=== PATIENT | male | born 1980 | race Caucasian/White ===

== ENCOUNTER 2017-06-13 18:25 | Inpatient (IN) | payer MEDICARE, MEDICAID ==
--- NOTE | 2017-06-13 19:10 | ED Physician Chart ---
ED Chief Complaint/HPI - Patient Information Date Seen:: 06/13/17 Time Seen:: 18:55 Chief Complaint:: left hip pain History of Present Illness:: 9 days ago patient was maintained transferred from his wheelchair to the bed and he fell injuring his left hip he was taken to [facility] where x- rays were taken and patient and mother were told that everything was alright. Patient lives with his mother and she is going to have surgery tomorrow so patient is here to be admitted so [facility]. Vitals:: Vital Signs - 8 hr 06/13/17 18:33 Temp 98.3 F HR 96 RR 16 BP 120/75 O2 Sat % 95 Historian:: Patient, Family Member Review:: Nurse's Note Reviewed ED Review of Systems - Review of Systems General/Constitutional: No fever, No chills Skin: No skin lesions Head: No headache Eyes: No loss of vision ENT: No earache Neck: No neck pain Cardio Vascular: No chest pain, No palpitations Pulmonary: No SOB GI: No nausea, No vomiting G/U: No dysuria, No frequency, No hematuria Musculoskeletal: Bone or joint pain Endocrine: No polyuria Psychiatric: No prior psych history Hematopoietic: No bruising Allergic/Immuno: No urticaria Neurological: No syncope ED Past Medical History - Past Medical History Past Medical History: Other (cerebral palsy) Family History: HTN Social History: Non Smoker, No Alcohol, Lives With Parents Surgical History: other (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; right foot; bilateral heel; hamstring) Psychiatricy History: None Medication: Reviewed Family Medical History - Family Member Mother Hx Family Hypertension: Yes ED Physical Exam - Physical Examination General/Constitutional: Well-developed, well-nourished, Alert, No distress Head: Atraumatic Eyes: Lids, conjuctiva normal, PERRL Skin: Nl inspection, No rash, No skin lesions, No ecchymosis ENMT: External ears, nose nl Neck: No nuchal rigidity Respiratory: Nl effort/Exclusion, Clear to Auscultation Cardio Vascular: RRR, No murmur, gallop, rubs GI: No tenderness/rebounding/guarding, No organomegaly, No hernia Other Neuro/Psych comments:: Contractures present ED Labs/Radiology/EKG Results - Lab Results Results: Laboratory Results - last 24 hr 06/13/17 06/13/17 19:13 19:13 WBC 8.3 RBC 5.84 H Hgb 17.5 Hct 51.8 MCV 88.7 MCH 30.0 MCHC Differential 33.9 RDW 12.5 Plt Count 178 MPV 8.9 Neutrophils % 66.2 Lymphocytes % 25.3 Monocytes % 5.9 Eosinophils % 1.7 Basophils % 0.9 Sodium 138 Potassium 3.8 Chloride 103 Carbon Dioxide 28.3 Anion Gap 10.5 BUN 9 Creatinine 0.5 L Est GFR ( Amer) > 60.0 Est GFR (Non-Af Amer) > 60.0 BUN/Creatinine Ratio 18.0 Glucose 116 H Calcium 9.8 - Radiology Results Results: Chest x-ray and left hip x-ray were normal ED Septic Shock - . Is Septic Shock (SBP<90, OR Lactate>4 mmol\L) present?: No - <6hrs of presentation: Vital Signs: Vital Signs - 8 hr 06/13/17 18:33 Temp 98.3 F HR 96 RR 16 BP 120/75 O2 Sat % 95 ED Reassessment (Disposition) - Reassessment Reassessment Condition:: Unchanged - Diagnosis Diagnosis:: Viral syndrome; left hip contusion - Patient Disposition Admitted to:: Med/Surg Spoke to:: Deon Moreno Admitting Medical Physician:: Deon Moreno
[2017-06-13 19:20] LABS: % BASOPHILS 0.9 % (0.0-2.0); % EOSINOPHILS 1.7 % (0.0-5.0); % LYMPHOCYTES 25.3 % (20.0-50.0); % MONOCYTES 5.9 % (2.0-10.0); % NEUTROPHILS 66.2 % (40.0-80.0); BASOPHILE ABSOLUTE 0.1 Th/cumm (0-0.2); EOSINOPHILE ABSOLUTE 0.1 Th/cmm (0.1-0.4); HEMATOCRIT 51.8 % (41.0-60); HEMOGLOBIN 17.5 gm/dL (12-16); LYMPHOCYTE ABSOLUTE 2.1 Th/cmm (1.5-3.0); MEAN CELL VOLUME 88.7 fl (80-99); MEAN CORPUSCULAR HGB CONC 33.9 pg (28.0-36.0); MEAN PLATELET VOLUME 8.9 fl; MONOCYTE ABSOLUTE 0.5 Th/cmm (0.3-1.0); NEUTROPHILE ABSOLUTE 5.5 Th/cmm (1.8-8.0); PLATELET COUNT 178 Th/cmm (150-400); RED BLOOD COUNT 5.84 Mil/cmm (4.30-5.70); RED CELL DISTRIBUTION WIDTH 12.5 % (11.5-20.0); WHITE BLOOD COUNT 8.3 Th/cmm (4.8-10.8)
[2017-06-13 19:32] LABS: ANION GAP 10.5 (7.0-16.0); BUN - UREA NITROGEN 9 mg/dL (7-25); CALCIUM SERUM 9.8 mg/dL (8.6-10.3); CARBON DIOXIDE 28.3 mEq/L (21.0-31.0); CHLORIDE 103 mEq/L (98-107); CREATININE - SERUM 0.5 mg/dL (0.7-1.3); GFR AFRICAN-AMERICAN > 60.0 ml/min (>90); GFR NON AFRICAN-AMERICAN > 60.0 ml/min; GLUCOSE 116 mg/dL (70-105); POTASSIUM SERUM 3.8 mEq/L (3.5-5.1); SODIUM SERUM 138 mEq/L (136-145)
--- NOTE | 2017-06-14 07:56 | Diagnostic Imaging Report ---
Exam: Left hip joint. HISTORY: Status post trauma pain Findings: Portable examination of the left hip joint at 1933 hours reviewed, no prior studies available comparison. The study somewhat limited due to patient inability cooperate . The study demonstrates the the head of the left femur is well within the acetabular fossa. The study is limited due to inability to position the patient. The visualized the hemipelvis is intact. IMPRESSION Limited examination of the left hip joint demonstrates no evidence of fracture dislocation. Additional views are recommended if clinically indicated.
--- NOTE | 2017-06-14 07:58 | Diagnostic Imaging Report ---
Portable chest x-ray Time: 1933 hours History: Trauma Allowing for portable technique the heart size is normal. No focal pulmonary parenchymal processes. No hilar or mediastinal abnormalities. There is a question of the tubular structure extending from the left neck area overlying the superior mediastinum. Clinical correlation recommended. Impression: No acute abnormalities.
[2017-06-14] MEDS ORDERED: Morphine Sulfate 2 mg/mL 1mL Syr IVP PRN (11:04)
[2017-06-14 11:34] LABS: % BASOPHILS 0.1 % (0.0-2.0); % EOSINOPHILS 1.5 % (0.0-5.0); % MONOCYTES 5.9 % (2.0-10.0); % NEUTROPHILS 67.5 % (40.0-80.0); EOSINOPHILE ABSOLUTE 0.1 Th/cmm (0.1-0.4); HEMATOCRIT 51.2 % (41.0-60); HEMOGLOBIN 17.4 gm/dL (12-16); LYMPHOCYTE ABSOLUTE 1.7 Th/cmm (1.5-3.0); MEAN CELL VOLUME 88.6 fl (80-99); MEAN CORPUSCULAR HGB CONC 33.9 pg (28.0-36.0); MEAN PLATELET VOLUME 8.9 fl; MONOCYTE ABSOLUTE 0.4 Th/cmm (0.3-1.0); NEUTROPHILE ABSOLUTE 4.7 Th/cmm (1.8-8.0); PLATELET COUNT 182 Th/cmm (150-400); RED BLOOD COUNT 5.78 Mil/cmm (4.30-5.70); RED CELL DISTRIBUTION WIDTH 12.5 % (11.5-20.0); WHITE BLOOD COUNT 6.9 Th/cmm (4.8-10.8)
--- NOTE | 2017-06-14 11:41 | Diagnostic Imaging Report ---
CHEST X-RAY: AP view INDICATION: Cough COMPARISON: 06/13/2017 FINDINGS: Mild increased interstitial lung markings are noted. No focal consolidation or effusions. Heart size is normal. A shunt catheter is noted. IMPRESSION: No focal consolidation identified Mild accentuation of the interstitial lung markings, nonspecific.
[2017-06-14 11:53] VITALS: BP 133/82
[2017-06-14 11:53] LABS: ANION GAP 8.4 (7.0-16.0); BUN - UREA NITROGEN 9 mg/dL (7-25); CALCIUM SERUM 10.1 mg/dL (8.6-10.3); CARBON DIOXIDE 31.9 mEq/L (21.0-31.0); CHLORIDE 104 mEq/L (98-107); CREATININE - SERUM 0.7 mg/dL (0.7-1.3); GFR AFRICAN-AMERICAN > 60.0 ml/min (>90); GFR NON AFRICAN-AMERICAN > 60.0 ml/min; GLUCOSE 108 mg/dL (70-105); POTASSIUM SERUM 4.3 mEq/L (3.5-5.1); SODIUM SERUM 140 mEq/L (136-145)
--- NOTE | 2017-06-14 12:47 | History and Physical ---
History of Present Illness - HPI Chief Complaint: left hip pain HPI: This is a 37 year old male who has a past medical history of cerebral palsy. According to er records patient was being transferred to the wheelchair to the bed and fell on his left hip. Patient was taken to [facility] and xrays were done showing no fractures. Vital Signs: Last Vital Signs Temp 98.3 F 06/14/17 10:50 Pulse 84 06/14/17 10:50 Resp 18 06/14/17 10:50 BP 133/82 06/14/17 11:53 Pulse Ox 97 06/14/17 10:50 Past Medical History Other History: cerebral palsy Family Medical History - Family Member Mother History Unknown: Yes Hx Family Hypertension: Yes Social History Smoke: No Alcohol: None Drugs: None Lives: With Family - Medications Home Medications: Home Medication Medication Instructions Recorded Type Tamsulosin [Flomax] 0.4 mg PO DAILY 06/13/17 History Triamcinolone Acet 0.1% Cream 1 appl TP BID 06/13/17 History [Kenalog 0.1%] - Allergies Allergies/Adverse Reactions: Allergies Allergy/AdvReac Type Severity Reaction Status Date / Time chlorpromazine AdvReac Verified 06/14/17 09:34 [From Thorazine] ciprofloxacin [From Cipro] AdvReac Verified 06/14/17 09:34 hydromorphone [From Dilaudid] AdvReac Verified 06/14/17 09:34 morphine AdvReac Verified 06/14/17 09:34 vancomycin AdvReac Verified 06/14/17 09:34 Review of Systems - Review of Systems Constitutional: Report: No Significant Eyes: Report: No Significant ENT: Report: No Significant Respiratory: Report: No Significant Cardiovascular: Report: No Significant Gastrointestinal: Report: No Significant Genitourinary: Report: No Significant Musculoskeletal: Report: No Significant Neurological: Report: No Significant Physical Exam - Physical Exam HEENT: Report: Ears Nose Throat within normal limits Neck: Report: Within normal limits Cardiovascular Systems: Report: +s1/s2 noted Respiratory: Report: Breath Sounds are within normal limits Abdomen: Report: Non-tender to palpation Back: Report: Inspection of back is within normal limits. Extremities: Report: Non-tender to palpation. Skin: Report: Color of skin is within normal limits Neuro/Psych: Report: Mood affect is within normal limits - Lab Results All Lab Results last 24 hours: Laboratory Results - last 24 hr 06/14/17 06/14/17 11:20 11:20 WBC 6.9 RBC 5.78 H Hgb 17.4 Hct 51.2 MCV 88.6 MCH 30.0 MCHC Differential 33.9 RDW 12.5 Plt Count 182 MPV 8.9 Neutrophils % 67.5 Lymphocytes % 25.0 Monocytes % 5.9 Eosinophils % 1.5 Basophils % 0.1 Sodium 140 Potassium 4.3 Chloride 104 Carbon Dioxide 31.9 H Anion Gap 8.4 BUN 9 Creatinine 0.7 Est GFR ( Amer) > 60.0 Est GFR (Non-Af Amer) > 60.0 BUN/Creatinine Ratio 12.9 Glucose 108 H Calcium 10.1 - Assessment Assessment: left hip pain cerebral palsy - Plan Plan: rn field case manager to arrange placement for this patient continue current orders pain mgmt
[2017-06-14] MEDS ORDERED: Influenza Vaccine 0.5 mL Syr IM ONE (13:07)
[2017-06-14] MEDS ORDERED: VTE Chemical Prophylaxis Screen/Admission MC PRN (13:36)
[2017-06-14] MEDS ORDERED: Hydrocodone/APAP 5mg/325mg Tab PO PRN (15:25)
[2017-06-15 05:17] LABS: % BASOPHILS 0.8 % (0.0-2.0); % EOSINOPHILS 2.5 % (0.0-5.0); % LYMPHOCYTES 32.7 % (20.0-50.0); % MONOCYTES 7.5 % (2.0-10.0); % NEUTROPHILS 56.5 % (40.0-80.0); BASOPHILE ABSOLUTE 0.1 Th/cumm (0-0.2); EOSINOPHILE ABSOLUTE 0.2 Th/cmm (0.1-0.4); HEMATOCRIT 46.9 % (41.0-60); LYMPHOCYTE ABSOLUTE 2.5 Th/cmm (1.5-3.0); MEAN CELL VOLUME 88.2 fl (80-99); MEAN CORPUSCULAR HEMOGLOBIN 30.1 pg (26.0-30.0); MEAN CORPUSCULAR HGB CONC 34.1 pg (28.0-36.0); MONOCYTE ABSOLUTE 0.6 Th/cmm (0.3-1.0); NEUTROPHILE ABSOLUTE 4.2 Th/cmm (1.8-8.0); PLATELET COUNT 193 Th/cmm (150-400); RED BLOOD COUNT 5.32 Mil/cmm (4.30-5.70); RED CELL DISTRIBUTION WIDTH 12.8 % (11.5-20.0); WHITE BLOOD COUNT 7.6 Th/cmm (4.8-10.8)
[2017-06-15 05:40] LABS: ALB/GLOB RATIO 1.2 (1.0-1.8); ALBUMIN 3.5 gm/dL (4.2-5.5); ALKALINE PHOSPHATASE 92 U/L (34-104); ANION GAP 4.3 (7.0-16.0); BILIRUBIN,TOTAL 0.4 mg/dL (0.3-1.0); BUN - UREA NITROGEN 12 mg/dL (7-25); CALCIUM SERUM 9.3 mg/dL (8.6-10.3); CARBON DIOXIDE 27.5 mEq/L (21.0-31.0); CHLORIDE 109 mEq/L (98-107); CREATININE - SERUM 0.7 mg/dL (0.7-1.3); GFR AFRICAN-AMERICAN > 60.0 ml/min (>90); GFR NON AFRICAN-AMERICAN > 60.0 ml/min; GLUCOSE 105 mg/dL (70-105); POTASSIUM SERUM 3.8 mEq/L (3.5-5.1); SGOT 13 U/L (13-39); SGPT/ALT 14 U/L (7-52); SODIUM SERUM 137 mEq/L (136-145); TOTAL PROTEIN,SERUM 6.5 gm/dL (6.0-8.3)
[2017-06-15 05:45] LABS: INR 1.01 (0.5-1.4); PROTHROMBIN TIME (TEST) 10.5 SECONDS (9.5-11.5)
[2017-06-15] MEDS: POLYETHYLENE GLYCOL 3350 17 GM PACK PO SCH (09:19)
[2017-06-15] MEDS: Triamcinolone Acetonide 0.1% Cream 15 gm TP SCH ×2 (09:19→16:57)
--- NOTE | 2017-06-15 20:20 | Progress Notes ---
DATE: 06/15/2017 SUBJECTIVE: The patient was seen in his room, lying in the bed. The patient denies any pain or discomfort at this time. The patient is able to verbalize. The patient has a history of cerebral palsy. Otherwise, the patient appears to be comfortable, in no acute distress. Denies any pain or discomfort at this time. OBJECTIVE: VITAL SIGNS: Temperature 98.0, heart rate 62, blood pressure 103/51, respirations of 18, and 99% on room air. HEENT: Head is atraumatic and normocephalic. Eyes: Bilateral conjunctivae are clear. Bilateral pupils equal, round, and reactive. NECK: Supple. No JVD. CARDIOVASCULAR: S1 and S2, without murmur. PULMONARY: Clear to auscultation. GASTROINTESTINAL: Soft and nontender without guarding. Positive bowel sounds. MUSCULOSKELETAL: No clubbing. No cyanosis. Upper extremity contracted. ASSESSMENT: 1. Left hip pain. 2. Contusion. 3. Cerebral palsy. PLAN: We will put the patient on aspiration precautions. manager er to arrange for placement. We will continue pain management as needed. We are also going to monitor the patient's nutritional status. Treatment plans were discussed with the patient's nurse. Treatment plans were discussed with Dr. Moreno. JOB# [id number]
[2017-06-16] MEDS: Triamcinolone Acetonide 0.1% Cream 15 gm TP SCH ×2 (10:23→16:37)
[2017-06-16] MEDS: POLYETHYLENE GLYCOL 3350 17 GM PACK PO SCH (10:23)
--- NOTE | 2017-06-16 13:41 | Internal Medicine Prog Note ---
Internal Medicine Subjective - Subjective Service Date: 06/16/17 Patient seen and examined:: with staff Patient is:: awake, verbal Per staff patient has:: tolerating meds Internal Medicine Objective - Results Result Diagrams: 06/15/17 04:25 06/15/17 04:25 Recent Labs: Laboratory Last Values WBC 7.6 Th/cmm (4.8-10.8) 06/15/17 04:25 RBC 5.32 Mil/cmm (4.30-5.70) 06/15/17 04:25 Hgb 16.0 gm/dL (12-16) 06/15/17 04:25 Hct 46.9 % (41.0-60) 06/15/17 04:25 MCV 88.2 fl (80-99) 06/15/17 04:25 MCH 30.1 pg (26.0-30.0) H 06/15/17 04:25 MCHC Differential 34.1 pg (28.0-36.0) 06/15/17 04:25 RDW 12.8 % (11.5-20.0) 06/15/17 04:25 Plt Count 193 Th/cmm (150-400) 06/15/17 04:25 MPV 9.0 fl 06/15/17 04:25 Neutrophils % 56.5 % (40.0-80.0) 06/15/17 04:25 Lymphocytes % 32.7 % (20.0-50.0) 06/15/17 04:25 Monocytes % 7.5 % (2.0-10.0) 06/15/17 04:25 Eosinophils % 2.5 % (0.0-5.0) 06/15/17 04:25 Basophils % 0.8 % (0.0-2.0) 06/15/17 04:25 PT 10.5 SECONDS (9.5-11.5) 06/15/17 04:25 INR 1.01 (0.5-1.4) 06/15/17 04:25 PTT (Actin FS) 28.0 SECONDS (26.0-38.0) 06/15/17 04:25 Sodium 137 mEq/L (136-145) 06/15/17 04:25 Potassium 3.8 mEq/L (3.5-5.1) 06/15/17 04:25 Chloride 109 mEq/L (98-107) H 06/15/17 04:25 Carbon Dioxide 27.5 mEq/L (21.0-31.0) 06/15/17 04:25 Anion Gap 4.3 (7.0-16.0) L 06/15/17 04:25 BUN 12 mg/dL (7-25) 06/15/17 04:25 Creatinine 0.7 mg/dL (0.7-1.3) 06/15/17 04:25 Est GFR ( Amer) > 60.0 ml/min (>90) 06/15/17 04:25 Est GFR (Non-Af Amer) > 60.0 ml/min 06/15/17 04:25 BUN/Creatinine Ratio 17.1 06/15/17 04:25 Glucose 105 mg/dL (70-105) 06/15/17 04:25 Calcium 9.3 mg/dL (8.6-10.3) 06/15/17 04:25 Total Bilirubin 0.4 mg/dL (0.3-1.0) 06/15/17 04:25 AST 13 U/L (13-39) 06/15/17 04:25 ALT 14 U/L (7-52) 06/15/17 04:25 Alkaline Phosphatase 92 U/L (34-104) 06/15/17 04:25 Total Protein 6.5 gm/dL (6.0-8.3) 06/15/17 04:25 Albumin 3.5 gm/dL (4.2-5.5) L 06/15/17 04:25 Globulin 3.0 gm/dL 06/15/17 04:25 Albumin/Globulin Ratio 1.2 (1.0-1.8) 06/15/17 04:25 - Physical Exam Vitals and I&O: Vital Signs Temp 97.6 F 06/16/17 04:00 Pulse 66 06/16/17 04:00 Resp 18 06/16/17 04:00 BP 111/53 06/16/17 04:00 Pulse Ox 96 06/16/17 04:00 Intake & Output 06/15/17 06/16/17 06/16/17 18:59 06:59 18:59 Intake Total 2000 500 Output Total 6 500 Balance 1993 0 Weight (lbs) 162 lb 8 oz 162 lb Intake: Oral 2000 500 Output: Urine 4 500 Stool 2 Other: # Voids 2 # Bowel Movements 0 Stool Characteristics Soft Formed Active Medications: Current Medications Acetaminophen/Hydrocodone Bitart ([place] 5mg/325mg) 1 tab PO Q4H PRN PRN Reason: Pain (Mild) Stop: 08/13/17 15:24 Heparin Sodium (Porcine) (Heparin) 5,000 units SUBQ Q12H YANET Stop: 08/13/17 20:59 Last Admin: 06/16/17 10:24 Dose: Not Given Miscellaneous (Vte Chemical Prophylaxis Screen/ Admission) 1 ea MC PRN PRN PRN Reason: PROTOCOL Stop: 08/13/17 13:35 Polyethylene Glycol (Miralax) 17 gm PO DAILY YANET Stop: 08/14/17 08:59 Last Admin: 06/16/17 10:23 Dose: 17 gm Tamsulosin HCl (Flomax) 0.4 mg PO DAILY YANET Stop: 08/14/17 08:59 Last Admin: 06/16/17 10:23 Dose: 0.4 mg Triamcinolone Acetonide (Kenalog 0.1%) 1 appl TP BID YANET Stop: 08/14/17 08:59 Last Admin: 06/16/17 10:23 Dose: 1 appl General: weak, alert HEENT: NC/AT, PERRLA Neck: Supple Lungs: CTAB Cardiovascular: RRR, Normal S1, Normal S2, without murmur Abdomen: soft, non-tender, non-distended, positive bowel sound Internal Medicine Assmt/Plan - Assessment Assessment: left hip pain cerebral palsy - Plan Plan: test case developer to arrange placement for this patient continue current orders pain mgmt
[2017-06-17 05:44] LABS: % BASOPHILS 0.7 % (0.0-2.0); % EOSINOPHILS 2.1 % (0.0-5.0); % LYMPHOCYTES 28.1 % (20.0-50.0); % MONOCYTES 6.1 % (2.0-10.0); BASOPHILE ABSOLUTE 0.1 Th/cumm (0-0.2); EOSINOPHILE ABSOLUTE 0.2 Th/cmm (0.1-0.4); LYMPHOCYTE ABSOLUTE 2.3 Th/cmm (1.5-3.0); MEAN CELL VOLUME 88.3 fl (80-99); MEAN CORPUSCULAR HEMOGLOBIN 29.4 pg (26.0-30.0); MEAN CORPUSCULAR HGB CONC 33.3 pg (28.0-36.0); MEAN PLATELET VOLUME 8.7 fl; MONOCYTE ABSOLUTE 0.5 Th/cmm (0.3-1.0); PLATELET COUNT 177 Th/cmm (150-400); RED BLOOD COUNT 5.44 Mil/cmm (4.30-5.70); RED CELL DISTRIBUTION WIDTH 12.6 % (11.5-20.0); WHITE BLOOD COUNT 8.1 Th/cmm (4.8-10.8)
[2017-06-17 06:00] LABS: ANION GAP 9.7 (7.0-16.0); BUN - UREA NITROGEN 15 mg/dL (7-25); CALCIUM SERUM 9.1 mg/dL (8.6-10.3); CARBON DIOXIDE 25.3 mEq/L (21.0-31.0); CHLORIDE 106 mEq/L (98-107); CREATININE - SERUM 0.6 mg/dL (0.7-1.3); GFR AFRICAN-AMERICAN > 60.0 ml/min (>90); GFR NON AFRICAN-AMERICAN > 60.0 ml/min; GLUCOSE 96 mg/dL (70-105); SODIUM SERUM 137 mEq/L (136-145)
[2017-06-17] MEDS: POLYETHYLENE GLYCOL 3350 17 GM PACK PO SCH (09:13)
--- NOTE | 2017-06-17 09:19 | General Progress Note ---
Subjective - Review of Systems Events since last encounter: left hip pain but in no acute distress Objective - Results Result Diagrams: 06/17/17 05:20 06/17/17 05:20 Recent Labs: Laboratory Last Values WBC 8.1 Th/cmm (4.8-10.8) 06/17/17 05:20 RBC 5.44 Mil/cmm (4.30-5.70) 06/17/17 05:20 Hgb 16.0 gm/dL (12-16) 06/17/17 05:20 Hct 48.0 % (41.0-60) 06/17/17 05:20 MCV 88.3 fl (80-99) 06/17/17 05:20 MCH 29.4 pg (26.0-30.0) 06/17/17 05:20 MCHC Differential 33.3 pg (28.0-36.0) 06/17/17 05:20 RDW 12.6 % (11.5-20.0) 06/17/17 05:20 Plt Count 177 Th/cmm (150-400) 06/17/17 05:20 MPV 8.7 fl 06/17/17 05:20 Neutrophils % 63.0 % (40.0-80.0) 06/17/17 05:20 Lymphocytes % 28.1 % (20.0-50.0) 06/17/17 05:20 Monocytes % 6.1 % (2.0-10.0) 06/17/17 05:20 Eosinophils % 2.1 % (0.0-5.0) 06/17/17 05:20 Basophils % 0.7 % (0.0-2.0) 06/17/17 05:20 PT 10.5 SECONDS (9.5-11.5) 06/15/17 04:25 INR 1.01 (0.5-1.4) 06/15/17 04:25 PTT (Actin FS) 28.0 SECONDS (26.0-38.0) 06/15/17 04:25 Sodium 137 mEq/L (136-145) 06/17/17 05:20 Potassium 4.0 mEq/L (3.5-5.1) 06/17/17 05:20 Chloride 106 mEq/L (98-107) 06/17/17 05:20 Carbon Dioxide 25.3 mEq/L (21.0-31.0) 06/17/17 05:20 Anion Gap 9.7 (7.0-16.0) 06/17/17 05:20 BUN 15 mg/dL (7-25) 06/17/17 05:20 Creatinine 0.6 mg/dL (0.7-1.3) L 06/17/17 05:20 Est GFR ( Amer) > 60.0 ml/min (>90) 06/17/17 05:20 Est GFR (Non-Af Amer) > 60.0 ml/min 06/17/17 05:20 BUN/Creatinine Ratio 25.0 06/17/17 05:20 Glucose 96 mg/dL (70-105) 06/17/17 05:20 Calcium 9.1 mg/dL (8.6-10.3) 06/17/17 05:20 Total Bilirubin 0.4 mg/dL (0.3-1.0) 06/15/17 04:25 AST 13 U/L (13-39) 06/15/17 04:25 ALT 14 U/L (7-52) 06/15/17 04:25 Alkaline Phosphatase 92 U/L (34-104) 06/15/17 04:25 Total Protein 6.5 gm/dL (6.0-8.3) 06/15/17 04:25 Albumin 3.5 gm/dL (4.2-5.5) L 06/15/17 04:25 Globulin 3.0 gm/dL 06/15/17 04:25 Albumin/Globulin Ratio 1.2 (1.0-1.8) 06/15/17 04:25 - Physical Exam Vitals and I&O: Vital Signs Temp 98.6 F 06/17/17 04:00 Pulse 73 06/17/17 04:00 Resp 18 06/17/17 04:00 BP 117/72 06/17/17 04:00 Pulse Ox 99 06/17/17 04:00 Intake & Output 06/16/17 06/17/17 06/17/17 18:59 06:59 18:59 Intake Total 2000 600 Output Total 500 Balance 2000 100 Weight (lbs) 73.709 kg 69.173 kg Intake: Oral 2000 600 Output: Urine 500 Other: # Voids 1 Stool Characteristics Soft Soft Formed Formed Active Medications: Current Medications Acetaminophen/Hydrocodone Bitart ([place] 5mg/325mg) 1 tab PO Q4H PRN PRN Reason: Pain (Mild) Stop: 08/13/17 15:24 Heparin Sodium (Porcine) (Heparin) 5,000 units SUBQ Q12H YANET Stop: 08/13/17 20:59 Last Admin: 06/17/17 09:14 Dose: Not Given Miscellaneous (Vte Chemical Prophylaxis Screen/ Admission) 1 ea PRN PRN PRN Reason: PROTOCOL Stop: 08/13/17 13:35 Polyethylene Glycol (Miralax) 17 gm PO DAILY YANET Stop: 08/14/17 08:59 Last Admin: 06/17/17 09:13 Dose: 17 gm Tamsulosin HCl (Flomax) 0.4 mg PO DAILY YANET Stop: 08/14/17 08:59 Last Admin: 06/17/17 09:13 Dose: 0.4 mg Triamcinolone Acetonide (Kenalog 0.1%) 1 appl TP BID YANET Stop: 08/14/17 08:59 Last Admin: 06/16/17 16:37 Dose: 1 appl
[2017-06-17] MEDS: Triamcinolone Acetonide 0.1% Cream 15 gm TP SCH (09:35)
--- NOTE | 2017-06-23 08:58 | Discharge Summary ---
DATE OF DISCHARGE: 06/17/2017 HISTORY AND HOSPITAL COURSE: The patient was admitted at [facility] on 06/14/2017 and was discharged on 06/17/2017 for further care at the [facility]. This patient apparently came in for severe left hip pain, unable to walk. The patient known to have history of cerebral palsy and the patient came in for evaluation and diagnosis of severe left hip pain and history of cerebral palsy and the patient had the workup done, showed no fracture. Physical therapy eval is given. The patient also noted to have polycythemia and the patient improved. The patient was in stable condition on 06/17/2017 and the final diagnosis of left hip pain, difficulty for ambulation, and history of mental retardation was made and the patient was sent to [facility] where I will follow the patient. Condition at the time of discharge was stable. MEDICATIONS: See the reconciliation sheet. JOB# [id number]
== END 2017-06-17 15:06 | DRG 604 ==
LOC: ER 18:25 → MSI 06-14 08:50
PROVIDERS: ADMIT Internal Medicine; ATTEND Internal Medicine
DX: S70.02XA Contusion of left hip, initial encounter (principal); R53.2 Functional quadriplegia; B34.9 Viral infection, unspecified; G80.9 Cerebral palsy, unspecified; I10 Essential (primary) hypertension; W17.89XA Other fall from one level to another, initial encounter; M25.552 Pain in left hip; Y93.89 Activity, other specified; Y92.89 Other specified places as the place of occurrence of the external cause; Y99.8 Other external cause status; Z88.1 Allergy status to other antibiotic agents; Z88.8 Allergy status to other drugs, medicaments and biological substances; Z88.5 Allergy status to narcotic agent; Z82.49 Family history of ischemic heart disease and other diseases of the circulatory system; Z79.899 Other long term (current) drug therapy
CPT/HCPCS: 36415-UA; 71045-TC; 73501; 80048-TC; 80053-TC; 85025-TC; 85610-TC; 85730-TC; J1644; Z7610

== ENCOUNTER 2017-08-20 11:21 | Emergency (ER) | payer MEDICARE, MEDICAID ==
--- NOTE | 2017-08-20 19:40 | ER Physician Documentation ---
DATE OF SERVICE: 08/20/2017 The patient was brought by the mother. The patient has cerebral palsy. The patient's mother has 4 children, one of the 4 children has cerebral palsy and this is the son that she brought. HISTORY OF PRESENT ILLNESS: A 37-year-old male patient who came in with the complaint of pain in the left ____. The patient came here over 06/02/2017. The patient had a fall and hurt the left hip and the patient had an x-ray done. The patient also has some left sole of the feet hurting. The patient came to see me, I saw the patient. The patient does not have any other symptoms. REVIEW OF SYSTEMS: A 12-lead review of systems is essentially benign and negative. The patient himself is saying no complaints. The patient's mother is taking very close care of the patient. ALLERGIES: VANCOMYCIN, CIPRO, THORAZINE, AND DILAUDID. The patient has taken all the medications. Vaccinations are completed. PAST MEDICAL HISTORY: Cerebral palsy, legally blind in both eyes. The patient has psoriasis. MEDICATIONS: The patient is taking Flomax, so the patient has an enlarged prostate for which this is being given. PHYSICAL EXAMINATION: GENERAL: The patient appears to be awake, alert, oriented, not in any acute cardiorespiratory distress. The patient has cerebral palsy. VITAL SIGNS: Temperature 98, pulse 92, respirations 16, blood pressure 157/77, oxygen saturation 99. Height is 5 feet 7 inches, weight is 160. The patient appears to be adequately built and nourished. He cannot walk. He is wheelchair bound, probably might need a new wheelchair. The patient has no fracture. Has x-rays done in the past when he came in about a month ago, now he has some pain in the left hip joint area and the left heel area. The other places of general examination are benign and negative. CONSTITUTIONAL: Negative. No fever, no chills, no rigors. CENTRAL NERVOUS SYSTEM: Otherwise, ____ negative. No history of any seizure disorder. No history of any brain tumor. CHEST: Clear without any rales, rhonchi, or bronchial breathing. HEART: Reveals normal heart sounds. No fourth heart sound. Third heart sound is absent. ABDOMEN: Soft, obese, benign. CVA essentially negative. Bladder is not distended. EXTREMITIES: Negative cyanosis ____. Otherwise is negative. CLINICAL IMPRESSION: 1. The patient has pain in the left hip because of the fall about a month ago and pain in the left heel area. In the left heel area, I do not find anything significant. Slight swelling is seen at the left bottom of the heel for which I advised that the patient should be seen by his own physician who might refer the patient to the emergency physician. The patient can take some Tylenol, one Tylenol 500 mg and one Motrin to be taken 2-3 times a day for pain and some warm water compression and that should take care of it and see him in followup. If it does not get better, he can come back to our hospital or any other hospital for continued care, but at the present moment nonsteroidal antiinflammatory drug as a starting drug to be given, so final diagnosis is pain in the left hip and pain in the left sole. Referred back to Dr. Scott Golden. 2. ALLERGY TO VANCOMYCIN, CIPRO, THORAZINE, DILAUDID. 3. Vital signs stable. 4. Legally blind in both eyes. 5. The patient has psoriasis. 6. Flomax is given probably most likely because of benign prostatic hypertrophy. The mother was informed about the condition. The patient will go and see his own doctor. No other things are present. Lungs are clear. Heart, abdomen, everything else is normal. The patient is sent home for continuation of the care with Tylenol and nonsteroidal anti-inflammatory drug, Tylenol not to take more than 3 grams a day and aspirin and Motrin not to take more than 4-5 tablets of 200 mg a day. JOB# [id number]
== END 2017-08-20 13:40 | disposition home or self-care (01) ==
LOC: ER 11:21
DX: H54.8 Legal blindness, as defined in USA (principal); L40.9 Psoriasis, unspecified; G80.9 Cerebral palsy, unspecified; Z88.8 Allergy status to other drugs, medicaments and biological substances
CPT/HCPCS: Z7502